=== PATIENT | female | born 1980 | race Hispanic/Latino ===

== ENCOUNTER → 2023-08-14 08:55 | Outpatient (REF) | payer OTHER, SELFPAY ==
[2023-08-14 10:23] LABS: Vitamin D, 25-OH*** 49.7 ng/mL (30-80)
== END ==
LOC: REG 08:55
PROVIDERS: ATTENDING PHYSICIAN Nurse Practitioner Adult Health
DX: E55.9 Vitamin D deficiency, unspecified (principal)
CPT/HCPCS: 36415; 82306

== ENCOUNTER → 2024-01-15 08:54 | Outpatient (REF) | payer OTHER, SELFPAY ==
[2024-01-15 11:15] LABS: Vitamin D, 25-OH*** 34.7 ng/mL (30-80)
== END ==
LOC: REG 08:54
PROVIDERS: ATTENDING PHYSICIAN Nurse Practitioner Adult Health
DX: E55.9 Vitamin D deficiency, unspecified (principal)
CPT/HCPCS: 36415; 82306

== ENCOUNTER → 2024-04-15 09:24 | Outpatient (REF) | payer OTHER, SELFPAY ==
[2024-04-15 10:53] LABS: Hematocrit 37.9 % (37.0-47.0); Hemoglobin 13.3 g/dL (12.0-16.0); Mean Corp Hgb Conc. 35.1 g/dL (33.0-37.0); Mean Corpuscular Hgb 30.2 pg (27.0-31.0); Mean Corpuscular Volume 85.9 fL (81.0-99.0); Platelet Count 165 10^3/uL (130-400); Red Blood Cell Count 4.41 10^6/uL (4.20-5.40); Red Cell Dist. Width 12.3 % (11.5-14.5); White Blood Cell Count 6.7 10^3/uL (4.8-10.8)
[2024-04-15 11:11] LABS: ALT (SGPT) 22 U/L (0-35); AST (SGOT) 22 U/L (14-36); Albumin 4.7 g/dl (3.5-5.0); Alkaline Phosphatase 63 U/L (38-126); Blood Urea Nitrogen 12 mg/dl (7-17); Calcium 9.9 mg/dl (8.4-10.2); Carbon Dioxide 22 mmol/L (22-30); Chloride 105 mmol/L (98-107); Glucose 90 mg/dl (70-99); HDL Cholesterol 65 mg/dl; LDL Cholesterol, Calculated 175 mg/dl; Potassium 4.6 mmol/L (3.5-5.1); Sodium 140 mmol/L (135-145); Total Bilirubin 0.3 mg/dl (0.2-1.3); Total Cholesterol 306 mg/dl (50-199); Total Protein 7.5 g/dl (6.3-8.2); Triglyceride 333 mg/dl (10-149); Very Low Density Lipoprotein 66 mg/dl (0-30); eGFR > 60.00
[2024-04-15 11:23] LABS: Vitamin D, 25-OH*** 44.9 ng/mL (30-80)
[2024-04-15 11:37] LABS: TSH Reflex To Free T4 0.81 uIU/ml (0.47-4.68)
== END ==
LOC: REG 09:24
PROVIDERS: ATTENDING PHYSICIAN Nurse Practitioner Adult Health
DX: Z00.00 Encounter for general adult medical examination without abnormal findings (principal); E55.9 Vitamin D deficiency, unspecified
CPT/HCPCS: 36415; 80053; 80061; 82306; 84443; 85027

== ENCOUNTER → 2024-05-27 11:38 | Outpatient (REF) | payer OTHER, SELFPAY ==
[2024-05-30 04:49] LABS: H. pylori Breath Test Negative (Negative)
== END ==
LOC: CLINIC 11:38
PROVIDERS: ATTENDING PHYSICIAN Nurse Practitioner Adult Health
DX: R10.13 Epigastric pain (principal)
CPT/HCPCS: 83013

== ENCOUNTER → 2024-05-27 11:56 | Outpatient (REF) | payer OTHER, SELFPAY ==
[2024-06-08 04:49] LABS: HPV, High Risk Not Detected; HPV, High Risk Source Cervical
== END ==
LOC: CLINIC 11:56
PROVIDERS: ATTENDING PHYSICIAN Nurse Practitioner Adult Health
DX: Z12.4 Encounter for screening for malignant neoplasm of cervix (principal)
CPT/HCPCS: 87624; G0123

== ENCOUNTER → 2024-08-19 18:07 | Outpatient (REF) | payer OTHER, SELFPAY | LOC: WDC 18:07 | PROVIDERS: ATTENDING PHYSICIAN Nurse Practitioner Adult Health | DX: Z12.31 Encounter for screening mammogram for malignant neoplasm of breast (principal) | CPT/HCPCS: 77063; 77067 ==

== ENCOUNTER → 2024-12-16 10:31 | Outpatient (REF) | payer OTHER, SELFPAY ==
[2024-12-16 12:33] LABS: Hemoglobin 12.7 g/dL (12.0-16.0); Mean Corp Hgb Conc. 34.3 g/dL (33.0-37.0); Mean Corpuscular Hgb 29.5 pg (27.0-31.0); Mean Corpuscular Volume 85.8 fL (81.0-99.0); Mean Platelet Volume 11.8 fL (7.4-10.4); Platelet Count 296 10^3/uL (130-400); Red Blood Cell Count 4.31 10^6/uL (4.20-5.40); Red Cell Dist. Width 12.3 % (11.5-14.5); White Blood Cell Count 5.8 10^3/uL (4.8-10.8)
[2024-12-16 14:04] LABS: TSH Reflex To Free T4 0.63 uIU/ml (0.47-4.68)
[2024-12-16 14:53] LABS: ALT (SGPT) 19 U/L (0-35); AST (SGOT) 19 U/L (14-36); Albumin 4.6 g/dl (3.5-5.0); Alkaline Phosphatase 73 U/L (38-126); Blood Urea Nitrogen 14 mg/dl (7-17); Calcium 9.6 mg/dl (8.4-10.2); Carbon Dioxide 21 mmol/L (22-30); Chloride 111 mmol/L (98-107); Glucose 91 mg/dl (70-99); Potassium 4.2 mmol/L (3.5-5.1); Sodium 140 mmol/L (135-145); Total Bilirubin 0.5 mg/dl (0.2-1.3); Total Protein 7.6 g/dl (6.3-8.2); eGFR > 60.00
[2024-12-16 15:11] LABS: IgA 264 mg/dl (70-400)
[2024-12-18 14:18] LABS: tTG IgA Antibody 8.7 EU/ml (0-19); tTG IgG Antibody 8.4 EU/ml (0-19)
== END ==
LOC: CLINIC 10:31
PROVIDERS: ATTENDING PHYSICIAN Nurse Practitioner Adult Health
DX: R10.84 Generalized abdominal pain (principal)
CPT/HCPCS: 36415; 80053; 82784; 83516; 84443; 85027; 86231

== ENCOUNTER → 2024-12-30 11:44 | Outpatient (REF) | payer OTHER, SELFPAY | LOC: RAD 11:44 | PROVIDERS: ATTENDING PHYSICIAN Nurse Practitioner Adult Health | DX: R10.84 Generalized abdominal pain (principal); R14.0 Abdominal distension (gaseous); R14.1 Gas pain | CPT/HCPCS: 74177; Q9967 ==

== ENCOUNTER 2025-06-23 06:18 | Day surgery (SDC) | payer OTHER, SELFPAY | END 2025-06-23 09:36 | disposition home or self-care (01) | LOC: GI 06:18 | PROVIDERS: ATTENDING PHYSICIAN Internal Medicine Gastroenterology | DX: R19.4 Change in bowel habit (principal); K64.8 Other hemorrhoids; K29.70 Gastritis, unspecified, without bleeding; K22.89 Other specified disease of esophagus; K31.7 Polyp of stomach and duodenum; K21.9 Gastro-esophageal reflux disease without esophagitis | CPT/HCPCS: 45380; 43239; 88305; 88342 ==